=== PATIENT | female | born 1990 | race American Indian/Alaskan Native ===

== ENCOUNTER 2017-06-01 22:37 | Emergency (ER) | payer OTHER ==
[2017-06-01 23:36] VITALS: BMI 26.6
[2017-06-01] MEDS ORDERED: Sodium Chloride 0.9% 1,000 ML IV STA (23:42)
[2017-06-01 23:45] VITALS: RESP 18
[2017-06-01] MEDS ORDERED: Benzocaine/Menthol (Cepacol) Lozenge MT PRN (23:54)
--- NOTE | 2017-06-01 23:54 | ED PDOC ---
Arrival/HPI - General Historian: Patient, Partner - History of Present Illness Time/Duration: Other (Two days ) Symptom Course: Unchanged Activities at Onset: Rest, Light Context: Home, Work <ANANTH ALFARO - Last Filed: 06/02/17 03:25> <Harsh Harrison - Last Filed: 06/02/17 19:41> - General Chief Complaint: Flu-like Symptoms Time Seen by Provider: 06/01/17 23:19 - History of Present Illness Narrative History of Present Illness (Text): 06/01/17 23:49 Ms. Duffy is a 26 year old AA female with a past medical history significant for DM2 who presents to the [facility] with a chief complaint of chills, rhinorrhea, sinus congestion, cough productive of green sputum, sore throat, muscle aches and diarrhea for two days. Patient reports that her symptoms began at work on Wednesday and haven't improved despite taking OTC Dayquil and Advil Sinus. She reports that she works at [employer] and has had several sick customers. She denies any recent travel, fever, weight loss, changes in her vision, chest pain, SOB, wheezing, abdominal pain, N/V, constipation, burning with urination, vaginal bleeding/discharge, rash, or any numbness/tingling/weakness of any extremity. (ANANTH ALFARO) Past Medical History - Provider Review Nursing Documentation Reviewed: Yes - Travel History Have you recently traveled outside [place] w/in the past 3 mons?: No - Past History Past History: No Previous - Infectious Disease Hx of Infectious Diseases: None - Tetanus Immunization Tetanus Immunization: Unknown - Reproductive Menopause: No - Past Medical History Past Medical History: Non-Contributing - Psychiatric Hx Substance Use: No <ANANTH ALFARO - Last Filed: 06/02/17 03:25> Family/Social History - Physician Review Nursing Documentation Reviewed: Yes Family/Social History: Unknown Family HX Smoking Status: Light Smoker < 10 Cigarettes Daily Hx Alcohol Use: Yes Frequency of alcohol use: Socially Hx Substance Use: No <ANANTH ALFARO - Last Filed: 06/02/17 03:25> Allergies/Home Meds <ANANTH ALFARO - Last Filed: 06/02/17 03:25> <Harsh Harrison - Last Filed: 06/02/17 19:41> Allergies/Adverse Reactions: Allergies No Known Allergies Allergy (Verified 06/01/17 23:36) Home Medications: Home Meds Medication Instructions Recorded Confirmed No Known Home Med 06/01/17 06/01/17 Review of Systems - Physician Review All systems were reviewed & negative as marked: Yes - Review of Systems Constitutional: Other (Endorses chills). absent: Normal, Weight Change, Fevers Eyes: Normal. absent: Vision Changes ENT: Sore Throat, Rhinorrhea, Sinus Congestion. absent: Normal Respiratory: Cough, Sputum (green). absent: Normal, SOB, Wheezing Cardiovascular: Normal. absent: Chest Pain, Palpitations Gastrointestinal: Diarrhea. absent: Normal, Abdominal Pain, Constipation, Nausea, Vomiting, Food Intolerance Genitourinary Female: Normal. absent: Dysuria, Vaginal Bleeding, Vaginal Discharge Musculoskeletal: Myalgias. absent: Normal, Back Pain, Neck Pain Skin: Normal. absent: Rash Neurological: Headache. absent: Normal, Dizziness Endocrine: Normal Hemo/Lymphatic: Normal Psychiatric: Normal <ANANTH ALFARO - Last Filed: 06/02/17 03:25> Physical Exam Vital Signs Reviewed: Yes Temperature: Afebrile Blood Pressure: Normal Pulse: Regular Respiratory Rate: Normal Appearance: Positive for: Well-Appearing, Non-Toxic, Comfortable Pain Distress: None Mental Status: Positive for: Alert and Oriented X 3 - Systems Exam Head: Present: Atraumatic, Normocephalic Pupils: Present: PERRL Extroacular Muscles: Present: EOMI Conjunctiva: Present: Normal Ears: Present: Normal, NORMAL TM, Normal Canal. No: Erythema Mouth: Present: Moist Mucous Membranes, Normal Lips, Normal Tounge, Normal Teeth Pharnyx: Present: ERYTHEMA. No: Normal, EXUDATE, TONSILS ENLARGED, Peritonsilar Swelling Nose (External): Present: Atraumatic Nose (Internal): Present: Clear Mucous, Rhinorrhea. No: Normal Inspection, No Active Bleeding, Engorged, Edematous, Boggy, Purulent Mucous, Septal Deviation, Septal Hematoma, Epistaxis Neck: Present: Normal Range of Motion, Trachea Midline. No: Meningeal Signs, MIDLINE TENDERNESS, Paraspinal Tenderness, JVD, Lymphadenopathy Respiratory/Chest: Present: Clear to Auscultation, Good Air Exchange. No: Respiratory Distress, Accessory Muscle Use, Wheezes, Decreased Breath Sounds, Rales, Retracting, Rhonchi, Tachypneic, Tender to Palpation Cardiovascular: Present: Regular Rate and Rhythm, Normal S1, S2, Peripheal Pulses Present. No: Murmurs, Irregular Rhythm, Tachycardic, Bradycardic Abdomen: Present: Normal Bowel Sounds. No: Tenderness, Peritoneal Signs Back: Present: Normal Inspection. No: CVA Tenderness, Midline Tenderness, Paraspinal Tenderness Upper Extremity: Present: Normal Inspection, Normal ROM, NORMAL PULSES, Capillary Refill < 2s. No: Cyanosis, Edema Lower Extremity: Present: Normal Inspection, NORMAL PULSES, Normal ROM, Capillary Refill < 2 s. No: Edema, CALF TENDERNESS Neurological: Present: GCS=15, CN II-XII Intact, Speech Normal Skin: Present: Warm, Dry, Normal Color. No: Rashes Lymphatic: No: Cervical Adenopathy Psychiatric: Present: Alert, Oriented x 3, Normal Insight, Normal Concentration <ANANTH ALFARO - Last Filed: 06/02/17 03:25> Vital Signs Temp Pulse Resp BP Pulse Ox 06/02/17 04:29 98.8 F 77 18 129/73 98 06/02/17 02:15 99.0 F 06/01/17 23:43 99.3 F 85 18 144/90 Medical Decision Making - Lab Interpretations I have reviewed the lab results: Yes <ANANTH ALFARO - Last Filed: 06/02/17 03:25> <Harsh Harrison - Last Filed: 06/02/17 19:41> ED Course and Treatment: 06/02/17 00:02 Impression: 26 year old AA female with a past medical history significant for DM2 who presents to the [facility] with a chief complaint of chills, rhinorrhea, sinus congestion, cough productive of green sputum, sore throat, muscle aches and diarrhea for two days. Plan: -CBC, CMP and UA -NS bolus -Cepacol lozenges -Reassess and disposition Prior Visits: No prior visits to review (ANANTH ALFARO) Patient Seen With Resident: In agreement with resident note which contains more details about the patient. Patient was seen and evaluated with resident. Came up with plan and treatment together. (Harsh Harrison) - Lab Interpretations Lab Results: 06/02/17 00:45 06/02/17 00:45 Lab Results 06/02/17 00:45: Sodium 140, Potassium 3.9, Chloride 102, Carbon Dioxide 30, Anion Gap 12, BUN 8, Creatinine 0.8, Est GFR ( Amer) > 60, Est GFR (Non- Af Amer) > 60, Random Glucose 113 H, Calcium 9.4, Total Bilirubin 0.6, AST 25, ALT 23, Alkaline Phosphatase 59, Total Protein 7.6, Albumin 4.5, Globulin 3.1, Albumin/Globulin Ratio 1.5 06/02/17 00:45: Urine Color Yellow, Urine Appearance Clear, Urine pH 8.0, Ur Specific [place] 1.015, Urine Protein Negative, Urine Glucose (UA) Negative, Urine Ketones Negative, Urine Blood Negative, Urine Nitrate Negative, Urine Bilirubin Negative, Urine Urobilinogen 1.0 H, Ur Leukocyte Esterase Negative 06/02/17 00:45: WBC 10.7, RBC 5.20, Hgb 12.2, Hct 37.5, MCV 72.1 L, MCH 23.5 L, MCHC 32.5, RDW 14.1, Plt Count 273, MPV 8.9, Gran % 76.2 H, Lymph % (Auto) 14.5 L, [place] % (Auto) 7.3 H, Eos % (Auto) 1.5, Baso % (Auto) 0.5, Gran # 8.18 H, Lymph # 1.6, [place] # 0.8 H, Eos # 0.2, Baso # 0.05 - Medication Orders Current Medication Orders: Discontinued Medications Acetaminophen (Tylenol 325mg Tab) 975 mg PO STAT STA Stop: 06/02/17 01:12 Last Admin: 06/02/17 01:39 Dose: 975 mg MAR Pain/Vitals Document 06/02/17 01:39 [facility] (Rec: 06/02/17 01:40 [id number]) Pain Reassessment Is This A Pain ReAssessment? No Benzocaine/Menthol (Cepacol Sore Throat) 1 benji MT Q2H PRN PRN Reason: Sore Throat Last Admin: 06/02/17 01:39 Dose: 1 benji Sodium Chloride (Sodium Chloride 0.9%) 1,000 mls @ 999 mls/hr IV .Q1H1M STA Stop: 06/02/17 00:42 Last Admin: 06/02/17 01:07 Dose: 999 mls/hr eMAR Start Stop Document 06/02/17 01:07 [facility] (Rec: 06/02/17 01:07 [id number]) Intravenous Solution Start Date 06/02/17 Start Time 00:45 End Date 06/02/17 End time 01:45 Total Infusion Time 60 Ibuprofen (Motrin Tab) 600 mg PO STAT STA Stop: 06/02/17 01:12 Last Admin: 06/02/17 01:39 Dose: 600 mg MAR Pain/Vitals Document 06/02/17 01:39 [facility] (Rec: 06/02/17 01:39 [id number]) Pain Reassessment Is This A Pain ReAssessment? No Sleep Is patient sleeping during reassessment? No Presence of Pain Presence of Pain Yes Pain Scale Used Pain Scale Used Numeric Location Pain Location Body Site Generalized Description Dull Intensity 4 Scale Used Numeric Metoclopramide HCl (Reglan) 10 mg IVP ONCE ONE Stop: 06/02/17 02:03 Last Admin: 06/02/17 02:57 Dose: 10 mg IVP Administration Document 06/02/17 02:57 [facility] (Rec: 06/02/17 03:08 [id number]) Charges for Administration # of IVP Administrations 1 - PA / [employer] / Resident Statement /DO has reviewed & agrees with the documentation as recorded. / has examined the patient and agrees with the treatment plan. <Harsh Harrison - Last Filed: 06/02/17 19:41> Disposition/Present on Arrival - Present on Arrival Any Indicators Present on Arrival: No History of DVT/PE: No History of Uncontrolled Diabetes: No Urinary Catheter: No History of Decub. Ulcer: No History Surgical Site Infection Following: None - Disposition Have Diagnosis and Disposition been Completed?: Yes Patient Plan: Discharge <ANANTH ALFARO - Last Filed: 06/02/17 03:25> - Present on Arrival Any Indicators Present on Arrival: No - Disposition Have Diagnosis and Disposition been Completed?: Yes Disposition Time: 06:00 <Harsh Harrison - Last Filed: 06/02/17 19:41> - Disposition Diagnosis: Viral upper respiratory tract infection with cough, Migraine Disposition: HOME/ ROUTINE Condition: IMPROVED Discharge Instructions (ExitCare): Migraine Headache (ED), Viral Syndrome (ED) Additional Instructions: Mr. Duffy, thank you for letting us take care of you today. Your provider was Dr. Harrison. You were treated for viral upper respiratory infection. The emergency medical care you received today was directed at your acute symptoms. If you were prescribed any medication, please fill it and take as directed. It may take several days for your symptoms to resolve. Return to the Emergency Department if your symptoms worsen, do not improve, or if you have any other problems. Please contact your doctor or call one of the physicians/clinics you have been referred to that are listed on the Patient Visit Information form that is included in your discharge packet. Bring any paperwork you were given at discharge with you along with any medications you are taking to your follow up visit. Our treatment cannot replace ongoing medical care by a primary care provider (PCP) outside of the emergency department. PLEASE FOLLOW UP WITH YOUR PRIMARY CARE DOCTOR WITHIN ONE WEEK Thank you for allowing the [facility] team to be part of your care today. Referrals: Heidi Arroyo MD [Primary Care Provider] - Follow up with primary Forms: [facility] (Pashto)
[2017-06-02 01:04] LABS: BASO # 0.05 K/mm3 (0.0-2.0); BASO % 0.5 % (0.0-3.0); EOS # 0.2 (0.0-0.7); EOS % 1.5 % (1.5-5.0); GRAN # 8.18 (1.4-6.5); GRAN % 76.2 % (50.0-68.0); HEMATOCRIT 37.5 % (36.0-48.0); LYMPH # 1.6 (1.2-3.4); LYMPH % 14.5 % (22.0-35.0); MEAN CELL VOLUME 72.1 fl (80.0-105.0); MEAN CORPUSCULAR HEMOGLOBIN 23.5 pg (25.0-35.0); MEAN CORPUSCULAR HGB CONC 32.5 g/dl (31.0-37.0); MEAN PLATELET VOLUME 8.9 fl (7.0-11.0); MONO # 0.8 (0.1-0.6); MONO % 7.3 % (1.0-6.0); RED CELL DISTRIBUTION WIDTH 14.1 % (11.5-14.5); WHITE BLOOD COUNT 10.7 10^3/ul (4.5-11.0)
[2017-06-02 01:08] LABS: URINE BILIRUBIN NEGATIVE (NEGATIVE); URINE BLOOD NEGATIVE (NEGATIVE); URINE GLUCOSE (UA) NEGATIVE (NEGATIVE); URINE KETONE NEGATIVE (NEGATIVE); URINE LEUKOCYTE ESTERASE NEGATIVE Leu/uL (NEGATIVE); URINE PROTEIN NEGATIVE mg/dL (<30 mg/dL)
[2017-06-02 01:11] LABS: URINE APPEARANCE CLEAR (CLEAR); URINE COLOR YELLOW (YELLOW)
[2017-06-02 01:17] LABS: ALB/GLOB RATIO 1.5 (1.1-1.8); ALKALINE PHOSPHATASE 59 U/L (38-126); ALT/SGPT 23 U/L (7-56); AST/SGOT 25 U/L (14-36); BILIRUBIN,TOTAL 0.6 mg/dL (0.2-1.3); BLOOD UREA NITROGEN 8 mg/dL (7-21); CALCIUM 9.4 mg/dL (8.4-10.5); CARBON DIOXIDE 30 mmol/L (21-33); CHLORIDE 102 mmol/L (98-107); GFR AFRICAN-AMERICAN > 60; GLUCOSE,RANDOM 113 mg/dL (70-110); POTASSIUM 3.9 mmol/L (3.6-5.0); SODIUM 140 mmol/L (132-148); TOTAL PROTEIN 7.6 g/dL (5.8-8.3)
[2017-06-02 04:30] VITALS: BP 129/73; PULSE 77; TEMP 98.8; O2SAT 98
== END 2017-06-02 04:31 | disposition home or self-care (01) ==
LOC: ED 22:37
DX: J06.9 Acute upper respiratory infection, unspecified (principal); R05 Cough; G43.909 Migraine, unspecified, not intractable, without status migrainosus; E11.9 Type 2 diabetes mellitus without complications; F17.210 Nicotine dependence, cigarettes, uncomplicated
CPT/HCPCS: 80053; 81003; 85025; 96361; 96374; 99284; J2765; J7040

== ENCOUNTER 2017-10-07 09:36 | Emergency (ER) | payer SELFPAY ==
[2017-10-07 09:36] VITALS: BMI 26.6
[2017-10-07 09:55] VITALS: RESP 18; O2SAT 99
--- NOTE | 2017-10-07 10:34 | ED PDOC ---
Arrival/HPI - General Chief Complaint: Flu-like Symptoms Time Seen by Provider: 10/07/17 10:03 Historian: Patient - History of Present Illness Narrative History of Present Illness (Text): 10/07/17 10:32 27yo female with PMHx of Diabetes present with complaint of nonproductive cough , generalized body ache, nasal congestion/rhinorrhea, headache, chills, generalized weakness, chest pain with cough since yesterday. She did not take any medication for her symptoms. Denies fever, nausea, vomiting, abdominal pain , diaphoresis, sick contact, travel, any other complaint. Past Medical History - Provider Review Nursing Documentation Reviewed: Yes - Past History Past History: No Previous - Infectious Disease Hx of Infectious Diseases: None - Tetanus Immunization Tetanus Immunization: Unknown - Past Medical History Past Medical History: Non-Contributing - Endocrine/Metabolic Hx Diabetes Mellitus Type 2: Yes - Psychiatric Hx Substance Use: No Family/Social History - Physician Review Nursing Documentation Reviewed: Yes Family/Social History: Unknown Family HX Smoking Status: Light Smoker < 10 Cigarettes Daily Hx Alcohol Use: Yes Hx Substance Use: No Allergies/Home Meds Allergies/Adverse Reactions: Allergies No Known Allergies Allergy (Verified 10/07/17 10:15) Review of Systems - Physician Review All systems were reviewed & negative as marked: Yes - Review of Systems Constitutional: Fatigue, Other (chills) Eyes: Normal ENT: Rhinorrhea Respiratory: Cough. absent: SOB, Sputum, Wheezing Cardiovascular: Normal Gastrointestinal: Normal Genitourinary Female: Normal Musculoskeletal: Normal Skin: Normal Neurological: Normal Endocrine: Normal Hemo/Lymphatic: Normal Psychiatric: Normal Physical Exam Vital Signs Reviewed: Yes Vital Signs Temp Pulse Resp BP Pulse Ox 10/07/17 13:49 98.5 F 71 18 125/71 99 10/07/17 12:18 75 18 128/74 99 10/07/17 09:54 98.3 F 81 18 130/81 99 Temperature: Afebrile Blood Pressure: Normal Pulse: Regular Respiratory Rate: Normal Appearance: Positive for: Well-Appearing, Non-Toxic, Comfortable Pain Distress: None Mental Status: Positive for: Alert and Oriented X 3 - Systems Exam Head: Present: Atraumatic, Normocephalic Pupils: Present: PERRL Extroacular Muscles: Present: EOMI Conjunctiva: Present: Normal Ears: Present: Normal Mouth: Present: Moist Mucous Membranes Pharnyx: Present: Normal Nose (Internal): Present: Normal Inspection Neck: Present: Normal Range of Motion Respiratory/Chest: Present: Clear to Auscultation, Good Air Exchange. No: Respiratory Distress, Accessory Muscle Use, Wheezes, Decreased Breath Sounds, Rales, Retracting, Rhonchi, Tachypneic Cardiovascular: Present: Regular Rate and Rhythm, Normal S1, S2. No: Murmurs Abdomen: Present: Normal Bowel Sounds. No: Tenderness, Distention, Peritoneal Signs Back: Present: Normal Inspection Upper Extremity: Present: Normal Inspection. No: Cyanosis, Edema Lower Extremity: Present: Normal Inspection. No: Edema Neurological: Present: GCS=15, CN II-XII Intact, Speech Normal Skin: Present: Warm, Dry, Normal Color. No: Rashes Psychiatric: Present: Alert, Oriented x 3, Normal Insight, Normal Concentration Medical Decision Making ED Course and Treatment: 10/07/17 20:10 Pt presented for stated history. Her VS improved in ED and pt states her pain improved with medication. Rapid flu was positive and pt was treated with Tamiflu. CXr NAD. PT was advised to drink plenty of fluid and rest. Referred to her PMD. TRT ED for any new or worsening symptoms. - Lab Interpretations Lab Results: Lab Results 10/07/17 11:30: Influenza Typ A,B (EIA) Pos for influenza a H - RAD Interpretation Radiology Orders: 10/07/17 10:21 CHEST TWO VIEWS (PA/LAT) [RAD] Stat - Medication Orders Current Medication Orders: Discontinued Medications Ibuprofen (Motrin Tab) 800 mg PO STAT STA Stop: 10/07/17 10:23 Last Admin: 10/07/17 12:19 Dose: 800 mg Oseltamivir Phosphate (Tamiflu Cap) 75 mg PO ONCE STA PRN Reason: Protocol Stop: 10/07/17 12:10 Last Admin: 10/07/17 12:18 Dose: 75 mg Disposition/Present on Arrival - Present on Arrival Any Indicators Present on Arrival: No History of DVT/PE: No History of Uncontrolled Diabetes: No Urinary Catheter: No History of Decub. Ulcer: No History Surgical Site Infection Following: None - Disposition Have Diagnosis and Disposition been Completed?: Yes Diagnosis: Influenza Disposition: HOME/ ROUTINE Disposition Time: 13:30 Patient Plan: Discharge Condition: STABLE Discharge Instructions (ExitCare): Flu, Flu, Adult (DC) Additional Instructions: Drink plenty of fluid and rest Take medication and follow up with your doctor Return to ED for any new or worsening symptoms Prescriptions: Benzonatate [Tessalon Perle] 100 mg PO TID #20 capsule Ibuprofen [Motrin Tab] 600 mg PO Q6 #20 tab Oseltamivir Phosphate [Tamiflu] 75 mg PO BID #10 capsule Referrals: Rhett Cr, [Primary Care Provider] - Follow up with primary [facility] [Outside] - Follow up with primary Forms: [facility] (Slovenian), WORK NOTE
[2017-10-07 13:49] VITALS: BP 125/71; PULSE 71; TEMP 98.5
--- NOTE | 2017-10-08 09:43 | CARD ---
APPROVED REPORT EKG Measurement Heart [id number] <Conclusion> Normal sinus rhythm Possible Left atrial enlargement Septal infarct, age undetermined Q in 3 NSSTW changes
== END 2017-10-07 14:03 | disposition home or self-care (01) ==
LOC: ED 09:36
DX: J11.1 Influenza due to unidentified influenza virus with other respiratory manifestations (principal); E11.9 Type 2 diabetes mellitus without complications; F17.210 Nicotine dependence, cigarettes, uncomplicated